=== PATIENT | female | born 1995 | race Asian ===

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

== ENCOUNTER 2017-09-07 22:08 | Observation (INO) | payer OTHER ==
[~2017-09-07] VITALS: Ht 167.6 cm; Wt 67.6 kg
[~2017-09-07 22:08] MED LIST changes: +ACET-689 PO; +CALNA OR
[2017-09-07 22:10] VITALS: BP 118/82; TEMP 98
[2017-09-07 22:50] LABS: PLATELET COUNT 571 K/uL (152-353)
[2017-09-07 22:59] LABS: POTASSIUM 3.9 mmol/L (3.6-5.2)
[2017-09-08 02:18] VITALS: BP 122/85; TEMP 98.6; Ht 167.6 cm; Wt 67.6 kg
[2017-09-08 04:00] VITALS: BP 115/83; TEMP 98.2
[2017-09-08 08:00] VITALS: BP 125/86; TEMP 98.6
[2017-09-08 12:00] VITALS: BP 108/78; TEMP 98.1
== END 2017-09-08 15:50 | disposition home or self-care (01) ==
LOC: ED 22:08 → MED/SURG 09-08 00:44
DX: R07.89 Other chest pain (principal); M94.0 Chondrocostal junction syndrome [Tietze]; S39.012A Strain of muscle, fascia and tendon of lower back, initial encounter; X58.XXXA Exposure to other specified factors, initial encounter; Y93.89 Activity, other specified; Y92.89 Other specified places as the place of occurrence of the external cause
CPT/HCPCS: 36415; 36600; 80053; 80307; 81000; 82550; 82805; 84484; 84703; 85027; 85379; 85610; 85730; 93005; 96365; 96366; 99220; 99283; G0378; J1650; J1885; Q9963

== ENCOUNTER 2018-01-04 14:34 | Emergency (ER) | payer OTHER ==
[~2018-01-04] VITALS: Ht 167.6 cm; Wt 67.6 kg
[2018-01-04 14:50] VITALS: TEMP 98.2
[2018-01-04 16:05] LABS: PLATELET COUNT 424 K/uL (152-353)
[2018-01-04 16:16] LABS: POTASSIUM 3.9 mmol/L (3.6-5.2)
[2018-01-04 17:00] VITALS: BP 125/82
== END 2018-01-04 17:15 | disposition home or self-care (01) ==
LOC: ED 14:34
PROVIDERS: Emergency Medicine
DX: R42 Dizziness and giddiness (principal); D64.9 Anemia, unspecified
CPT/HCPCS: 36591; 80053; 80307; 81025; 85027; 93005; 99283

== ENCOUNTER 2018-02-01 12:31 | Emergency (ER) | payer OTHER ==
[~2018-02-01] VITALS: Ht 167.6 cm; Wt 65.8 kg
[2018-02-01 13:22] LABS: PLATELET COUNT 412 K/uL (152-353)
[2018-02-01 13:31] LABS: POTASSIUM 3.9 mmol/L (3.6-5.2)
[2018-02-01 13:45] VITALS: BP 122/89; TEMP 98
== END 2018-02-01 13:46 | disposition home or self-care (01) ==
LOC: ED 12:31
PROVIDERS: Emergency Medicine
DX: D64.9 Anemia, unspecified (principal)
CPT/HCPCS: 36415; 80053; 85027; 93005; 99283

== ENCOUNTER 2018-02-26 06:11 | Emergency (ER) | payer OTHER ==
[~2018-02-26] VITALS: Ht 167.6 cm; Wt 55.8 kg
[2018-02-26 08:14] LABS: PLATELET COUNT 544 K/uL (152-353)
[2018-02-26 08:24] LABS: POTASSIUM 4.2 mmol/L (3.6-5.2)
[2018-02-26 14:14] VITALS: BP 104/69; TEMP 98.7
== END 2018-02-26 14:29 | disposition home or self-care (01) ==
LOC: EDP 06:11 → ED 06:11
PROVIDERS: Family Medicine
DX: R10.11 Right upper quadrant pain (principal); R10.31 Right lower quadrant pain
CPT/HCPCS: 36415; 80053; 81000; 81025; 82150; 83690; 85027; 96361; 96374; 96375; 99284; J1885; J2175; J2405; J2550; Q9963

== ENCOUNTER 2020-09-05 23:24 | Emergency (ER) | payer OTHER ==
[~2020-09-05] VITALS: Ht 167.6 cm; Wt 70.3 kg
[2020-09-06 01:01] LABS: PLATELET COUNT 420 K/uL (152-353)
[2020-09-06 01:17] LABS: POTASSIUM 3.8 mmol/L (3.6-5.2)
[2020-09-06 02:40] VITALS: BP 115/73; TEMP 98.2
== END 2020-09-06 02:40 | disposition home or self-care (01) ==
LOC: ED 23:24
PROVIDERS: Family Medicine
DX: O20.0 Threatened abortion (principal); Z3A.01 Less than 8 weeks gestation of pregnancy; O99.011 Anemia complicating pregnancy, first trimester
CPT/HCPCS: 36415; 80053; 81000; 84702; 85008; 85027; 99284